=== PATIENT | female | born 2000 | race Caucasian/White ===

== ENCOUNTER → 2020-02-09 | Outpatient (CLI) | payer SELFPAY ==
--- NOTE | 2020-02-09 14:02 | RADIOLOGY REPORT (SQ) ---
EXAM DESCRIPTION: U/S [id number] TRNABD 1GES W/ODOP IMAGES COMPLETED DATE/TIME: 02/09/2020 1:04 pm REASON FOR STUDY: Z34.81 ENCOUNTER FOR SUPRVSN OF NORMAL , FIRST TRIMESTER Z34.81 ENCOUNTE R FOR SUPRVSN OF NORMAL , FIRST TRIM COMPARISON: None. TECHNIQUE: Transabdominal static and realtime grayscale images acquired of the pelvis. Additional se lected spectral and color Doppler images recorded. All images stored on PACs. [facility]: Not available. CLINICAL DATES: LMP 12/03/2019. EGA based on LMP 9 weeks 5 days. DALTON based on LMP 09/08/2020. LIMITATIONS: None. FINDINGS: FETUS: Single Living intrauterine . ULTRASOUND EGA: 10 weeks 3 days. ULTRASOUND DALTON: 09/03/2020. CRL: 3.5 cm. FHR: 175 beats per minute. SURVEY: Too early to assess. AMNIOTIC FLUID: Too early to assess. PLACENTA: Too early to assess. SUBCHORIONIC BLEED: No. UTERUS: The uterus measures 10.5 x 9.9 x 9.7 cm. There is an intrauterine gestational sac that conta ins an embryo. CERVICAL LENGTH: 3 cm. Closed. RIGHT ADNEXA: Unable to visualize the right ovary. There is no adnexal mass. LEFT ADNEXA: Unable to visualize the left ovary. There is no adnexal mass. FREE FLUID: None. OTHER: No other finding. IMPRESSION: LIVE INTRAUTERINE . EGA 9 weeks 5 days based on LMP with concordant biometric parameters. Nonvisualization of the ovaries. There is no adnexal mass. Trimester of : First trimester - 0 to 13 weeks. TECHNICAL DOCUMENTATION: JOB ID: [id number] [employer]- All Rights Reserved rev-12/17 Reading location - IP/workstation name: [email or web address]
== END ==
LOC: RAD 12:46
PROVIDERS: ATTEND Midwife
DX: Z34.81 Encounter for supervision of other normal pregnancy, first trimester (principal); Z3A.10 10 weeks gestation of pregnancy
CPT/HCPCS: 76801

== ENCOUNTER → 2020-04-23 | Outpatient (CLI) | payer SELFPAY ==
--- NOTE | 2020-04-23 15:38 | RADIOLOGY REPORT (SQ) ---
EXAM DESCRIPTION: U/S OB 14+ TRNABD 1GES W/O DOP IMAGES COMPLETED DATE/TIME: 04/23/2020 3:22 pm REASON FOR STUDY: Z34.82 ENCOUNTER FOR SUPRVSN OF NORMAL , SECOND TRIMESTER Z34.82 ENCOUNT ER FOR SUPRVSN OF NORMAL , SECOND TRI COMPARISON: 02/09/2020 TECHNIQUE: Static and Dynamic grayscale imaging performed of gravid uterus using transabdominal appr oach. Additional selected color Doppler and spectral images recorded. All stored on PACS. LIMITATIONS: None. FINDINGS: FETUSES SEEN:1 EGA: 20 weeks 3 days Calculated using BPD,FL,HC,AC documented on images. No discrepancy with clinica l dates. DALTON: 09/07/2020 EFW: 356 grams PERCENTILE: Not calculated. LVP: 4.9 x 7.9 cm PLACENTA: Anterior grade 1 PRESENTATION: Variable ANATOMY: HEART RATE: 155 beats per minute. FOUR CHAMBER HEART: Visualized. THREE VESSEL CORD: Yes. CORD INSERTION: Visualized. KIDNEYS AND BLADDER: Visualized. Appear normal. STOMACH: Visualized. Appears normal. SPINE: Normal as visualized. BRAIN AND LATERAL VENTRICLES: Visualized. Appear normal. OTHER: No other significant finding. MATERNAL ADNEXA: Maternal ovaries not visualized. CERVICAL LENGTH: 3.4 cm Closed. OTHER: No other significant finding. IMPRESSION: LIVING INTRAUTERINE . ESTIMATED GESTATIONAL AGE 20 weeks 3 days. NO VISUALIZED ANOMALIES. Trimester of : Second trimester - 13 weeks 1 day to 27 weeks 6 days. TECHNICAL DOCUMENTATION: JOB ID: [id number] [employer]- All Rights Reserved Reading location - IP/workstation name: [email or web address]
== END ==
LOC: RAD 14:53
PROVIDERS: ATTEND Midwife
DX: Z34.82 Encounter for supervision of other normal pregnancy, second trimester (principal); Z3A.20 20 weeks gestation of pregnancy
CPT/HCPCS: 76805

== ENCOUNTER 2020-07-19 01:36 | Outpatient (CLI) | payer OTHER ==
[2020-07-19 02:17] LABS: APPEARANCE,URINE SLIGHTLY-CLOUDY; BILIRUBIN,URINE NEGATIVE (NEGATIVE); CALCIUM OXALATE CRYSTALS,URINE FEW /HPF; COLOR,URINE AMBER; GLUCOSE, URINE NEGATIVE (NEGATIVE); KETONES,URINE TRACE mg/dL (NEGATIVE); LEUKOCYTE ESTERASE,URINE MODERATE (NEGATIVE); NITRITE,URINE NEGATIVE (NEGATIVE); PROTEIN,URINE 30 mg/dL (NEGATIVE); URINE SPECIFIC GRAVITY 1.025
[2020-07-19 02:40] LABS: URINE AMPHETAMINES SCREEN NEGATIVE; URINE BARBITURATES SCREEN NEGATIVE; URINE BENZODIAZEPINES SCREEN NEGATIVE; URINE COCAINE SCREEN NEGATIVE; URINE MARIJUANA (THC) SCREEN NEGATIVE; URINE METHADONE SCREEN NEGATIVE; URINE PHENCYCLIDINE SCREEN NEGATIVE
--- NOTE | 2020-07-19 04:17 | Non Stress Test Report ---
Non Stress Test Datetime Report Generated by CPN: 07/19/2020 04:16 DEMOGRAPHIC EGA NST: 32.5 INDICATION Indication for Study (NST) Other: lc for cramping URINE RESULTS Urine Glucose - NST: Positive MONITORING Monitor Explained: Monitor Explained; Test Explained; Patient Verbalized Understanding Time on Monitor: 07/19/2020 02:08 Time off Monitor: 07/19/2020 04:03 NST Duration: 115 NST INTERVENTIONS NST Interventions: PO Hydration; Reposition Patient Physician Notified NST: Dr Montiel BABY A: [id number] BABY A Contraction Frequency : irreg FHR Baseline : 125 Accelerations : 15X15 Decelerations : None Variability : Moderate 6-25bpm NST Review: Meets Criteria for Reactive NST NST Review and Verified By : Addison Hernandez RN NST Results: Reactive NST REPORT Report Trigger: Send Report
== END 2020-07-19 04:19 | disposition home or self-care (01) ==
LOC: LC 01:36
PROVIDERS: ATTEND Obstetrics & Gynecology Gynecology
DX: O47.03 False labor before 37 completed weeks of gestation, third trimester (principal); Z3A.32 32 weeks gestation of pregnancy
CPT/HCPCS: 59025; 80307; 81001

== ENCOUNTER 2020-07-26 14:30 | Outpatient (CLI) | payer OTHER ==
[2020-07-26 14:35] VITALS: BP 120/77
--- NOTE | 2020-07-26 15:12 | ER Document Report ---
ED Medical Screen (RME) - General Chief Complaint: Pain With Urination Stated Complaint: VAGINAL PAIN,PAINFUL URINATION Time Seen by Provider: 07/26/20 15:01 Mode of Arrival: Ambulatory Information source: Patient Notes: HPI; a 20-year-old female 2 para 0 33 weeks 5 days presents to the emergency room complaining of vaginal pain with burning lower abdominal cramping and yellow discharge for the past 2 days. She denies any bleeding. Call was placed to labor and delivery, patient is to go directly to labor and delivery for further evaluation and treatment. PE: Alert and oriented x3. Lungs: Clear to auscultation without rales, rhonchi, wheezes. Heart: Tachycardic without murmurs, rubs, gallops. I have greeted and performed a rapid initial assessment of this patient. A comprehensive ED assessment and evaluation of the patient, analysis of test results and completion of the medical decision making process will be conducted by additional ED providers. I have specifically instructed the patient or family members with the patient to immediately return to any nursing staff should anything change in the patient's condition or with their chief complaint. TRAVEL OUTSIDE OF THE [place] IN LAST 30 DAYS: No - Related Data Allergies/Adverse Reactions: No Known Allergies Allergy (Verified 07/13/20 05:54) Physical Exam - Vital signs Vitals: Temp Pulse Resp BP Pulse Ox 97.5 F 101 H 20 120/77 97 07/26/20 14:32 07/26/20 14:32 07/26/20 14:32 07/26/20 14:32 07/26/20 14:32 Course - Vital Signs Vital signs: Temp Pulse Resp BP Pulse Ox 97.5 F 101 H 20 120/77 97 07/26/20 14:32 07/26/20 14:32 07/26/20 14:32 07/26/20 14:32 07/26/20 14:32
--- NOTE | 2020-07-26 16:03 | PDOC PROGRESS REPORT ---
Subjective Date:: 07/26/20 Subjective:: Painful labia and swollen. she has been on Macrobid for UTI and she thought she may have a yeast infection so she has been using monistat but it is not helping. States no itch but just pain. No history of STI. Good FM. Reason For Visit: LABOR CHECK Physical Exam - Physical Exam Vital Signs: Temp Pulse Resp BP Pulse Ox 97.5 F 101 H 20 120/77 97 07/26/20 14:32 07/26/20 14:32 07/26/20 14:32 07/26/20 14:32 07/26/20 14:32 Intake & Output 07/25/20 07/26/20 07/27/20 06:59 06:59 06:59 Weight 71.9 kg General appearance: PRESENT: no acute distress, cooperative GI/Abdominal exam: PRESENT: soft Neurological exam: PRESENT: alert, awake, oriented to person, oriented to place, oriented to time, oriented to situation, CN II-XII grossly intact. ABSENT: motor sensory deficit Psychiatric exam: PRESENT: appropriate affect, normal mood. ABSENT: homicidal ideation, suicidal ideation Skin exam: PRESENT: dry, intact, warm. ABSENT: cyanosis, rash - Gynecological Exam Labia: tender - Multiple blister looking lesions in various stages of healing. Both labia swollen. Blisters on both labia minor and majora. Small amount of thin Yellow-white VD Assessment & Plan - Diagnosis (1) Labia irritation Is this a current diagnosis for this admission?: Yes - Time Time Spent with patient: 15-24 minutes Medications reviewed and adjusted accordingly: Yes Anticipated discharge: Home Anticipated DC Timeframe: within 24 hours - Plan Summary Plan Summary: 20 yo G1 at 33 wks EGA with labial pain and swelling : possible HSV vs allergic rxn to Monistat -Exam with blisters on labia as above -Exam very painfiul -HSV culture and Antibody test,wet prep and G/C -Will begin Valtrex and lidocaine jelly prn -Will notify her of results
[2020-07-26 16:10] LABS: BACTERIA (WET MOUNT) 4+ BACTERIA SEEN; EPITHELIALS (WET MOUNT) 3+ EPITHELIALS SEEN; RBCS (WET MOUNT) FEW RBCS SEEN; T.VAGINALIS (WET MOUNT) NO TRICHOMONAS SEEN; WBCS (WET MOUNT) 3+ WBCS SEEN; YEAST (WET MOUNT) NO YEAST SEEN
[2020-07-26 16:31] LABS: APPEARANCE,URINE SLIGHTLY-CLOUDY; BILIRUBIN,URINE NEGATIVE (NEGATIVE); COLOR,URINE YELLOW; GLUCOSE, URINE NEGATIVE (NEGATIVE); KETONES,URINE TRACE mg/dL (NEGATIVE); LEUKOCYTE ESTERASE,URINE LARGE (NEGATIVE); NITRITE,URINE NEGATIVE (NEGATIVE); PROTEIN,URINE NEGATIVE (NEGATIVE); URINE SPECIFIC GRAVITY 1.015; UROBILINOGEN,URINE NEGATIVE mg/dL (<2.0)
[2020-07-26 16:46] LABS: URINE AMPHETAMINES SCREEN NEGATIVE; URINE BARBITURATES SCREEN NEGATIVE; URINE BENZODIAZEPINES SCREEN NEGATIVE; URINE COCAINE SCREEN NEGATIVE; URINE MARIJUANA (THC) SCREEN NEGATIVE; URINE METHADONE SCREEN NEGATIVE; URINE PHENCYCLIDINE SCREEN NEGATIVE
[2020-07-26] MEDS ORDERED: LIDOCAINE 5% OINTMENT 35.44 GM TP ONE (17:30)
[2020-07-26] MEDS ORDERED: VALACYCLOVIR HCL 500 MG TABLET PO ONE (17:30)
[2020-07-26 17:38] LABS: CHLAM PCR NOT DETECTED (NOT DETECT)
--- NOTE | 2020-07-26 17:57 | Non Stress Test Report ---
Non Stress Test Datetime Report Generated by CPN: 07/26/2020 17:56 DEMOGRAPHIC EGA NST: 33.5 INDICATION Indication for Study (NST) Other: possible HSV outbreak VITAL SIGNS Temperature - NST: 97.9 Pulse - NST: 90 RESP - NST: 17 MONITORING Monitor Explained: Monitor Explained; Test Explained; Patient Verbalized Understanding Time on Monitor: 07/26/2020 16:30 Time off Monitor: 07/26/2020 17:00 NST Duration: 30 NST INTERVENTIONS NST Interventions: PO Hydration Physician Notified NST: Dr. Cardoza BABY A: [id number] BABY A Movement : Present Contraction Frequency : occasional FHR Baseline : 135 Accelerations : 15X15 Decelerations : None Variability : Moderate 6-25bpm NST Review: Meets Criteria for Reactive NST NST Review and Verified By : Katina Aguayo RN NST REPORT Report Trigger: Send Report
--- NOTE | 2020-07-30 15:00 | Progress Note ---
Provider Note Provider Note: pt was seen in LD for lesion on labia on 07-26, a rx was not called in. Valtrex 1000 1 po BID x 10 days and lidocaine jelly 2% sent to [facility]. tried to call pt but no answer. HSV + for HSV 2
== END 2020-07-26 17:55 | disposition home or self-care (01) ==
LOC: EDSTATUS 15:10 → LC 15:12 → LR 15:28 → LC 17:55
PROVIDERS: ATTEND Obstetrics & Gynecology
DX: O23.593 Infection of other part of genital tract in pregnancy, third trimester (principal); Z3A.33 33 weeks gestation of pregnancy
CPT/HCPCS: 36415; 59025; 80307; 81001; 86695; 86696; 87210; 87250; 87491; 87591; J3490

== ENCOUNTER 2020-08-25 20:03 | Outpatient (CLI) | payer OTHER ==
[2020-08-25 20:45] LABS: APPEARANCE,URINE SLIGHTLY-CLOUDY; BILIRUBIN,URINE NEGATIVE (NEGATIVE); GLUCOSE, URINE 50 mg/dL (NEGATIVE); KETONES,URINE NEGATIVE (NEGATIVE); LEUKOCYTE ESTERASE,URINE LARGE (NEGATIVE); NITRITE,URINE NEGATIVE (NEGATIVE); PROTEIN,URINE 100 mg/dL (NEGATIVE); URINE SPECIFIC GRAVITY 1.032
[2020-08-25 20:49] LABS: COLOR,URINE DARK YELLOW
[2020-08-25] MEDS ORDERED: CEFTRIAXONE INJ 1000 MG VIAL ONE (20:53)
[2020-08-25] MEDS ORDERED: LIDOCAINE 1% INJ-PF (10 MG/ML) 30 ML SDV ONE (20:54)
[2020-08-25 21:16] LABS: URINE AMPHETAMINES SCREEN NEGATIVE; URINE BARBITURATES SCREEN NEGATIVE; URINE BENZODIAZEPINES SCREEN NEGATIVE; URINE COCAINE SCREEN NEGATIVE; URINE MARIJUANA (THC) SCREEN NEGATIVE; URINE METHADONE SCREEN NEGATIVE; URINE PHENCYCLIDINE SCREEN NEGATIVE
--- NOTE | 2020-08-25 21:23 | Non Stress Test Report ---
Non Stress Test Datetime Report Generated by CPN: 08/25/2020 21:23 DEMOGRAPHIC EGA NST: 38.0 INDICATION Indication for Study (NST) Other: Gestational age greater than 32 weeks VITAL SIGNS Temperature - NST: 98.3 Pulse - NST: 86 RESP - NST: 17 NBPSYS NST: 120 NBPDIA NST: 70 MONITORING Monitor Explained: Monitor Explained; Test Explained; Patient Verbalized Understanding Monitor Explained: Monitor Explained; Test Explained; Patient Verbalized Understanding Time on Monitor: 08/25/2020 20:27 Time off Monitor: 08/25/2020 20:58 NST Duration: 31 NST INTERVENTIONS NST Interventions: PO Hydration; Reposition Patient NST Interventions: PO Hydration; Reposition Patient Physician Notified NST: Dr. Adair BABY A: [id number] BABY A Movement : Present Movement : Present Contraction Frequency : x 4 FHR Baseline : 125 Accelerations : 15X15 Accelerations : 15X15 Decelerations : None Decelerations : None Variability : Moderate 6-25bpm NST Review: Meets Criteria for Reactive NST NST Review: Meets Criteria for Reactive NST NST Review and Verified By : Juan Carlos varela RN NST Results: Reactive NST Results: Reactive NST REPORT Report Trigger: Send Report
[2020-08-25] MEDS ORDERED: LIDOCAINE 1% INJ-PF (10 MG/ML) 30 ML SDV INJ ONE (21:30)
[2020-08-25] MEDS ORDERED: CEFTRIAXONE INJ 1000 MG VIAL IM ONE (21:30)
--- NOTE | 2020-08-25 22:11 | PDOC PROGRESS REPORT ---
Subjective Date:: 08/25/20 Subjective:: reports having contractions since yesterday, no lof, no vb, +FM Reason For Visit: LABOR CHECK Physical Exam - Physical Exam Vital Signs: Intake & Output 08/24/20 08/25/20 08/26/20 06:59 06:59 06:59 Weight 75.8 kg General appearance: PRESENT: no acute distress, well-developed, well-nourished Head exam: PRESENT: atraumatic, normocephalic Respiratory exam: PRESENT: clear to auscultation usha, symmetrical, unlabored GI/Abdominal exam: PRESENT: normal bowel sounds, soft. ABSENT: distended, guarding, mass, organolmegaly, rebound, tenderness Rectal exam: PRESENT: deferred Extremities exam: PRESENT: full ROM. ABSENT: calf tenderness, clubbing, pedal edema Musculoskeletal exam: PRESENT: ambulatory Neurological exam: PRESENT: alert, awake, oriented to person, oriented to place, oriented to time, oriented to situation, CN II-XII grossly intact. ABSENT: motor sensory deficit Psychiatric exam: PRESENT: appropriate affect, normal mood. ABSENT: homicidal ideation, suicidal ideation Skin exam: PRESENT: dry, intact, warm. ABSENT: cyanosis, rash Result Laboratory Results: 08/25/20 20:18 Urine Color DARK YELLOW Urine Appearance SLIGHTLY-CLOUDY Urine pH 5.0 Ur Specific [place] 1.032 Urine Protein 100 H Urine Glucose (UA) 50 H Urine Ketones NEGATIVE Urine Blood NEGATIVE Urine Nitrite NEGATIVE Ur Leukocyte Esterase LARGE H Assessment & Plan - Diagnosis (1) False labor Is this a current diagnosis for this admission?: Yes Plan: very irregular contractions. cvx //hi (2) Herpes genitalia Is this a current diagnosis for this admission?: Yes Plan: outbreak, per notes appears to be first outbreak. 07/26/2020. Valtrex started at that time. no c/o at this time. (3) Urinary tract infection Qualifiers: Urinary tract infection type: acute cystitis Is this a current diagnosis for this admission?: Yes Plan: ROcephin given IM now. handwritten rx for macrobid given to patient to fill medication. F/u in office next week. - Time Time Spent with patient: Less than 15 minutes Medications reviewed and adjusted accordingly: Yes Anticipated discharge: Home - Inpatient Certification Based on my medical assessment, after consideration of the patient's comorbidities, presenting symptoms, or acuity I expect that the services needed warrant INPATIENT care.: No I certify that my determination is in accordance with my understanding of Medicare's requirements for reasonable and necessary INPATIENT services [42 CFR 412.3e].: No
== END 2020-08-25 21:21 | disposition home or self-care (01) ==
LOC: LC 20:03
PROVIDERS: ATTEND Student in an Organized Health Care Education/Training Program
DX: O47.1 False labor at or after 37 completed weeks of gestation (principal); O23.43 Unspecified infection of urinary tract in pregnancy, third trimester; Z3A.37 37 weeks gestation of pregnancy
CPT/HCPCS: 59025; 87086; 81005; 80307; J3490; J0696

== ENCOUNTER 2020-08-27 09:57 | Outpatient (CLI) | payer OTHER ==
[2020-08-27 10:50] LABS: APPEARANCE,URINE CLOUDY; BILIRUBIN,URINE NEGATIVE (NEGATIVE); COLOR,URINE YELLOW; GLUCOSE, URINE NEGATIVE (NEGATIVE); KETONES,URINE NEGATIVE (NEGATIVE); LEUKOCYTE ESTERASE,URINE LARGE (NEGATIVE); NITRITE,URINE NEGATIVE (NEGATIVE); PROTEIN,URINE NEGATIVE (NEGATIVE); URINE SPECIFIC GRAVITY 1.006; UROBILINOGEN,URINE NEGATIVE mg/dL (<2.0)
[2020-08-27 11:17] LABS: URINE AMPHETAMINES SCREEN NEGATIVE; URINE BARBITURATES SCREEN NEGATIVE; URINE BENZODIAZEPINES SCREEN NEGATIVE; URINE COCAINE SCREEN NEGATIVE; URINE MARIJUANA (THC) SCREEN NEGATIVE; URINE METHADONE SCREEN NEGATIVE; URINE PHENCYCLIDINE SCREEN NEGATIVE
--- NOTE | 2020-08-27 11:43 | Non Stress Test Report ---
Non Stress Test Datetime Report Generated by CPN: 08/27/2020 11:42 DEMOGRAPHIC EGA NST: 38.2 INDICATION Indication for Study (NST) Other: false labor VITAL SIGNS Temperature - NST: 97.6 Pulse - NST: 80 RESP - NST: 16 NBPSYS NST: 128 NBPDIA NST: 71 MONITORING Monitor Explained: Monitor Explained; Test Explained; Patient Verbalized Understanding Time on Monitor: 08/27/2020 10:09 Time off Monitor: 08/27/2020 10:58 NST Duration: 49 NST INTERVENTIONS NST Interventions: PO Hydration; Reposition Patient Physician Notified NST: A. Lugo, CNM BABY A: [id number] BABY A Movement : Present Contraction Frequency : occasional, irregular FHR Baseline : 120 Accelerations : 15X15 Decelerations : None Variability : Moderate 6-25bpm NST Review: Meets Criteria for Reactive NST NST Review and Verified By : ROSEMARY Sherwood Results: Reactive NST REPORT Report Trigger: Send Report
== END 2020-08-27 11:38 | disposition home or self-care (01) ==
LOC: LC 09:57
PROVIDERS: ATTEND Obstetrics & Gynecology Gynecology
DX: O47.1 False labor at or after 37 completed weeks of gestation (principal); Z3A.38 38 weeks gestation of pregnancy
CPT/HCPCS: 59025; 80307; 81005; 94760

== ENCOUNTER 2020-08-27 16:23 | Inpatient (IN) | payer OTHER ==
[2020-08-27] MEDS ORDERED: RINGERS SOLUTION,LACTATED 1,000 ML IV PRN ×2 (16:37→17:05)
[2020-08-27] MEDS ORDERED: OXYTOCIN 10 UNIT/ML VIAL ONE (16:39)
[2020-08-27] MEDS ORDERED: OXYTOCIN/0.9 % SODIUM CHLORIDE 30 UNIT/500 ML RTUINJ ONE (16:40)
[2020-08-27] MEDS ORDERED: LIDOCAINE 1% INJ-PF (10 MG/ML) 30 ML SDV ONE (16:40)
[2020-08-27] MEDS ORDERED: MISOPROSTOL 0.2 MG TABLET ONE (16:40)
[2020-08-27] MEDS ORDERED: ONDANSETRON HCL INJ/PF 4 MG/2 ML SDV ONE (16:59)
[2020-08-27] MEDS ORDERED: ONDANSETRON HCL INJ/PF 4 MG/2 ML SDV IV ONE (17:00)
[2020-08-27 17:07] LABS: ABSOLUTE LYMPHOCYTES (AUTO) 0.9 10^3/uL (0.5-4.7); ABSOLUTE MONOCYTES (AUTO) 0.3 10^3/uL (0.1-1.4); ABSOLUTE NEUT (AUTO) 10.4 10^3/uL (1.7-8.2); BASOPHILS % (AUTO) 0.2 % (0-2); HEMATOCRIT 27.4 % (36.0-47.0); LYMPHOCYTES % (AUTO) 7.4 % (13-45); MEAN CORPUSCULAR HEMOGLOBIN 26.1 pg (27.0-33.4); MEAN CORPUSCULAR HGB CONC 32.9 g/dL (32.0-36.0); MEAN CORPUSCULAR VOLUME 79 fl (80-97); MONOCYTES % (AUTO) 2.9 % (3-13); PLATELET COUNT 174 10^3/uL (150-450); RED BLOOD COUNT 3.45 10^6/uL (3.72-5.28); RED CELL DISTRIBUTION WIDTH 16.7 % (11.5-14.0); SEGMENTED NEUTROPHILS % (AUTO) 89.5 % (42-78); TOTAL CELLS COUNTED % (AUTO) 100 %; WHITE BLOOD COUNT 11.6 10^3/uL (4.0-10.5)
[2020-08-27] MEDS ORDERED: FENTANYL/BUPIVACAINE/NS/PF 0 MCG/0 ML RTUINJ EPI ONE (17:21)
[2020-08-27] MEDS ORDERED: ROPIVACAINE HCL 0.2% INJ/PF (2 MG/ML) 20 ML SDV ONE (17:21)
[2020-08-27] MEDS ORDERED: EPHEDRINE SULFATE INJ 50 MG/1 ML AMPULE ONE (17:21)
--- NOTE | 2020-08-27 17:54 | Admission Physical ---
Datetime Report Generated by CPN: 08/27/2020 17:54 CURRENT ADMISSION Chief Complaint: Uterine Contractions Indication for Induction: Not Applicable Admit Impression : Term, Intrauterine ; Active Labor Admit Plan: Admit to Unit; Initiate Labor Protocol ALLERGIES Medication Allergies: No Medication Allergies: No Known Allergies (08/27/2020) Latex: No Latex Allergies Food Allergies: none Environmental Allergies: none OBSTETRICAL HISTORY EDC: 09/08/2020 00:00 : 2 Para: 0 Term: 0 : 0 SAB: 1 IAB: 0 Ectopic: 0 Livin Cesareans: 0 VBACs: 0 Multiple Births: 0 Gestational Diabetes: No Rh Sensitization: No Incompetent Cervix: No AYAH: No Infertility: No ART Treatment: No Uterine Anomaly: No IUGR: No Hx Previous C/S: No Macrosomia: No Hx Loss/Stillborn: No PIH: No Hx : No Placenta Previa/Abruption: No Depression/PP Depression: No PTL/PROM: No Post Hemorrhage: No Obstetrical History Comments: G1:2015 7 weeks G2:current SEE RECORDS Alcohol: No Marijuana : No Cocaine: No Other Illicit Drugs: No Cigarettes: Former Smoker. [id number] MEDICAL HISTORY Diabetes: No Blood Transfusion: No Pulmonary Disease (Asthma, TB): No Breast Disease: No Hypertension: No Head Charrer Surgery: No Heart Disease: No Hosp/Surgery: No Autoimmune Disorder: No Anesthetic Complications: No Kidney Disease: No Abnormal Pap Smear: No Neuro/Epilepsy: No Psychiatric Disorders: No Other Medical Diseases: Yes Hepatitis/Liver Disease: No Significant Family History: No Varicosities/Phlebitis: No Trauma/Violence : No Thyroid Dysfunction: No Medical History Comments: anxiety and depression while a teenager- on meds; hasnt been on meds since 2014 INFECTIOUS HISTORY Gonorrhea: Yes Genital Herpes: No Chlamydia: Yes Tuberculosis: No Syphilis: No Hepatitis: No HIV/AIDS Exposure: No Rash or Viral Illness: No HPV: No Infectious History Comments: 3 years ago- treated negaticve in PHYSICAL EXAM General: Normal HEENT: Normal Neurologic: Normal Thyroid: Deferred Heart: Normal Lungs: Normal Breast: Deferred Back: Normal Abdomen: Normal Genitourinary Exam: Normal Extremities: Normal DTRs: Deferred Pelvic Type: Adequate Physical Exam Comments: speculum exam done for hx hsv initial outbreak was end of july. she has been on valtrex and denies prodromal sx Vital Signs: Reviewed; Within Normal Limits VAGINAL EXAM Dilatation: 7 Effacement: 90 Station: -2 Contraction Comments: q2-3 mins MEMBRANES Pooling: Positive Membranes: Ruptured Amniotic Fluid Color: Meconium, Light FETUS A EGA: 38.2 Monitoring: External US FHR- Baseline: 120 Variability: Minimal - Undetectable to <=5bpm Accelerations: 15X15 Decelerations: Early FHR Category: Category I Estimated Weight (gm): 3000 Presentation: Vertex Admit Comment: admitted in active labor. SROM with meconium stained fluid. P: routine labor care, anticipate PLANS FOR LABOR AND DELIVERY Labor and Delivery: None Pain Management: Natural Feeding Preference: Breast Benefit of Breast Feed Discussed: Yes Circumcision: N/A INFORMED CONSENT Assignment: Rinku Montiel MD Signature: with User ID: [email or web address] : with User ID: [email or web address]
[2020-08-27] MEDS ORDERED: ACETAMINOPHEN 650 MG SUPP.RECT PR PRN (20:09)
[2020-08-27] MEDS ORDERED: ACETAMINOPHEN 325 MG TABLET PO PRN (20:09)
[2020-08-27] MEDS ORDERED: MAGNESIUM HYDROXIDE SUSP 30 ML UDCUP PO PRN (20:09)
[2020-08-27] MEDS ORDERED: VARICELLA VACC/PF (1350 UNIT/0.5 ML) 0.5 ML VIAL SUBCUT PRN (20:09)
[2020-08-27] MEDS ORDERED: DIPH/PERTUSS(ACELL)/TETANUS VAC/PF 0.5 ML SYR (>=10YO) IM PRN (20:09)
[2020-08-27] MEDS ORDERED: MAG HYDROX/AL HYDROX/SIMETH SUSP 30 ML UDCUP PO PRN (20:09)
[2020-08-27] MEDS ORDERED: FAMOTIDINE 20 MG TABLET PO PRN (20:09)
[2020-08-27] MEDS ORDERED: ZOLPIDEM TARTRATE 5 MG TABLET PO PRN (20:09)
[2020-08-27] MEDS ORDERED: GLYCERIN/WITCH HAZEL LEAF 1 EACH MED..WIPE TP PRN (20:09)
[2020-08-27] MEDS ORDERED: DIBUCAINE 1% OINTMENT 28 GM TP PRN (20:09)
[2020-08-27] MEDS ORDERED: OXYTOCIN/0.9 % SODIUM CHLORIDE 30 UNIT/500 ML RTUINJ IV PRN (20:09)
[2020-08-27] MEDS ORDERED: DIPHENHYDRAMINE HCL 25 MG CAPSULE PO PRN (20:09)
[2020-08-27] MEDS ORDERED: BENZOCAINE/MENTHOL AEROSOL SPRAY 56 ML TOP PRN (20:09)
[2020-08-27] MEDS ORDERED: MEASLES,MUMPS&RUBELLA VACC/PF 0.5 ML VIAL SUBCUT PRN (20:09)
[2020-08-27] MEDS ORDERED: PSEUDOEPHEDRINE HCL 30 MG TABLET PO PRN (20:09)
[2020-08-27] MEDS ORDERED: ACETAMINOPHEN WITH CODEINE #3 TABLET PO PRN (20:09)
[2020-08-27] MEDS ORDERED: IBUPROFEN 800 MG TABLET ONE (20:17)
[2020-08-27 20:22] LABS: HEMATOCRIT 28.9 % (36.0-47.0); HEMOGLOBIN 9.4 g/dL (12.0-15.5); MEAN CORPUSCULAR HEMOGLOBIN 25.9 pg (27.0-33.4); MEAN CORPUSCULAR HGB CONC 32.4 g/dL (32.0-36.0); MEAN CORPUSCULAR VOLUME 80 fl (80-97); RED BLOOD COUNT 3.62 10^6/uL (3.72-5.28); RED CELL DISTRIBUTION WIDTH 16.3 % (11.5-14.0); WHITE BLOOD COUNT 17.2 10^3/uL (4.0-10.5)
[2020-08-27 20:44] LABS: PLATELET COUNT 167 10^3/uL (150-450)
--- NOTE | 2020-08-27 21:43 | Warning Signs in Babies ---
VOD Warning Signs Datetime Report Generated by [facility]: 08/27/2020 21:43 VOD#608 -Warning Signs in Babies: Viewed with Parent(s)/Family (07/12/2020 22:17:Willi Cardoso RN)
--- NOTE | 2020-08-27 21:48 | Delivery Summary ---
Del Sum A-C Datetime Report Generated by CPN: 08/27/2020 21:48 DELIVERY PERSONNEL DELIVERY PERSONNEL: [id number] Delivery Doctor:: Rinku Montiel MD Labor and Delivery Nurse:: Willi Cardoso RN Nursery Nurse:: Jenna Flores RN Certified Nutritionist/SUPPLY CHAIN BUYER: Rachel Ross, ST MATERNAL INFORMATION Delivery Anesthesia: Local Medications After Delivery: Pitocin 30 Units in 500ml NS/D5W; Cytotec 1000mcg Per Rectum/Vagina Estimated Blood Loss (ml): 800 Delivery QBL: 800 Maternal Complications: None LABOR SUMMARY EDC: 09/08/2020 00:00 No. Babies in Womb: 1 Attempted: No Labor Anesthesia: None LABOR INFORMATION Reason for Induction: Not Applicable Onset of Labor: 08/27/2020 16:34 Complete Dilatation: 08/27/2020 18:57 Oxytocin: N/A Group B Beta Strep: Negative Antibiotics # of Doses: 0 Name of Antibiotic Given: n/a Steroids Given: None Reason Steroids Not Administered: Not Applicable MEMBRANES Membranes Rupture Method: Spontaneous Rupture of Membranes: 08/27/2020 17:24 Length of Rupture (hr): 2.48 Amniotic Fluid Color: Light Meconium Amniotic Fluid Amount: Moderate Amniotic Fluid Odor: None STAGES OF LABOR Stage 1 hr: 2 Stage 1 min: 23 Stage 2 hr: 0 Stage 2 min: 56 Stage 3 hr: 0 Stage 3 min: 4 Total Time in Labor hr: 3 Total Time in Labor min: 23 VAGINAL DELIVERY Episiotomy: None Laceration #1: Vaginal Laceration Extension #1: N/A Laceration Repair: Yes Laceration Repair Note: 2-0 vicryl Sponge Count Correct: Yes; Vaginal Sweep Performed Sharps Count Correct: Yes CSECTION DELIVERY Primary Indication: N/A Secondary Indication: N/A CSection Incidence: N/A Labor: N/A Elective: N/A CSection Incision: N/A BABY A INFORMATION Delivery Date/Time: 08/27/2020 19:53 Method of Delivery: Vaginal Nurse Controlled Delivery: No Born in Route : No : N/A Forceps: N/A Vacuum Extraction: N/A Shoulder Dystocia : No PRESENTATION/POSITION BABY A Presentation: Cephalic Cephalic Presentation: Vertex Vertex Position: Left Occipital Anterior Breech Presentation: N/A PLACENTA INFORMATION BABY A Placenta Delivery Time : 08/27/2020 19:57 Placenta Method of Delivery: Spontaneous Placenta Status: Delivered SCORES BABY A Heart Rate 1 min: >100 bpm Resp Effort 1 min: Good Cry Reflex Irritability 1 min: Cough or Sneeze or Pulls Away Muscle Tone 1 min: Active Motion Color 1 min: Blue/Pale Resuscitation Effort 1 min: Tactile Stimulation SCORE 1 MIN: 8 Heart Rate 5 min: >100 bpm Resp Effort 5 min: Good Cry Reflex Irritability 5 min: Cough or Sneeze or Pulls Away Muscle Tone 5 min: Active Motion Color 5 min: Body Debary, Extremities Blue SCORE 5 MIN: 9 INFORMATION BABY A Gestational Age at Delivery: 38.2 Gestational Status: Early Term- 37- 38.6 Weeks Infant Outcome : Liveborn Condition : Stable Infant Sex: Female IDENTIFICATION BABY A Infant Verification Date/Time: 08/27/2020 20:13 ID Band Number: [id number] Mother's Name Verified: Yes RN Verifying : Ivan Cardoso, ROSEMARY Additional Verifying Personnel: Mj Henrandez RN WEIGHT/LENGTH BABY A Birthweight (gm): 3490 Weight (lb): 7 Infant Weight (oz): 11 Infant Length (in): 19.00 Length (cm): 48.26 CORD INFORMATION BABY A No. Cord Vessels: 3 Nuchal Cord : N/A Cord Blood Taken: Yes-For Storage (Mom's Blood type +) Suction: Mouth; Nose ASSESSMENT BABY A Infant Complications: None Physical Findings at Delivery: Within Normal Limits Skin to Skin: Yes Skin to Skin Time (min): 60 Transferred To: Remains with Mother BABY B INFORMATION : N/A SIGNATURES Signature: with User ID: [email or web address] : I was personally available for consultation and serving as supervising physician for the MLP.
--- NOTE | 2020-08-27 21:48 | Birth Certificate Data ---
Cert Data Datetime Report Generated by CPN: 08/27/2020 21:48 CERTIFICATE DATA Delivery Provider: Rinku Montiel MD (07/12/2020 22:17:Rinku Montiel MD (WEB)) 47a. Care: Yes (07/12/2020 22:17:MARCELLA Guadarrama) 47b. Date of First Visit: 01/17/2020 00:00 (07/12/2020 22:17:Ayesha Javier RN) 47c. Date of Last Visit: 08/22/2020 00:00 (07/12/2020 22:17:Ayesha Javier RN) 47d. Number of Visits: 14 (07/12/2020 22:17:Ayesha Javier RN) 48a. Number of Prev Live Births: 0 (07/12/2020 22:17:MARCELLA Guadarrama) 48b. Now Livin (07/12/2020 22:17:MARCELLA Guadarrama) 48c. Live Births Now : 0 (07/12/2020 22:17:QS system process) 48e. Losses: 0 (07/12/2020 22:17:Zeenat Camp, RNC) RISK FACTORS IN THIS 49a. Diabetes: No (07/12/2020 22:17:Tracee Linn RN) 49b. Hypertension: No (07/12/2020 22:17:Tracee Linn RN) 49c. Previous Births: 0 (07/12/2020 22:17:Zeenat [place], [facility]) 49d. Stillborns: No (07/12/2020 22:17:Tracee Linn RN) 49d. IUGR: No (07/12/2020 22:17:Tracee Linn RN) 49e. Infertility Treatment: No (07/12/2020 22:17:Tracee Linn RN) 49f. Previous Cesareans: 0 (07/12/2020 22:17:Zeenat Camp, [facility]) Mother's Height 50b. Height Inches: 65 (07/13/2020 05:54:QS system process) Mother's Weight 51b. Weight at Delivery (lbs): 167 (08/27/2020 10:08:QS system process) Infections Present/Treated 53a. Gonorrhea: Yes (07/12/2020 22:17:Tracee Linn RN) Results this Hospital Visit : Negative (07/12/2020 22:17:Estelita Zavala RN) 53b. Syphilis: No (07/12/2020 22:17:Tracee Linn RN) 53c. Chlamydia: Yes (07/12/2020 22:17:Tracee Linn RN) Results this Hospital Visit: Negative (07/12/2020 22:17:Estelita Zavala RN) 53d. Hepatitis B: No (07/12/2020 22:17:Tracee Linn RN) Results this Hospital Visit: Negative (07/12/2020 22:17:Tracee Linn RN) 53e. Hepatitis C: Negative (07/12/2020 22:17:Estelita Zavala RN) 53h. Mother Tested for HBsAG: Yes (07/12/2020 22:17:Ayesha Javier RN) 53i. Date Tested: 02/14/2020 00:00 (07/12/2020 22:17:Estelita Zavala RN) 53j. Test Result: Negative (07/12/2020 22:17:Tracee Linn RN) Obstetric Procedures 54a, b, c. Obstetric Procedures: Ultrasound; NST (07/12/2020 22:17:Ayesha Javier RN) Cigarette Smoking Cigarette Smoking: Former Smoker. [id number] (07/12/2020 22:17:Willi Cardoso RN) 55a. 3 Months Before Preg - Ci (07/12/2020 22:17:Willi Cardoso RN) 55a. Packs: 0 (07/12/2020 22:17:Willi Cardoso RN) 55b. 1st Trimester of Preg- Ci (07/12/2020 22:17:Willi Cardoso RN) 55b. Packs: 0 (07/12/2020 22:17:Willi Cardoso RN) 55c. 2nd Trimester of Preg- Ci (07/12/2020 22:17:Willi Cardoso RN) 55c. Packs: 0 (07/12/2020 22:17:Willi Cardoso RN) 55d. 3rd Trimester of Preg- Ci (07/12/2020 22:17:Willi Cardoso RN) 55d. Packs: 0 (07/12/2020 22:17:Willi Cardoso RN) Onset of Labor 56a. PROM >12 Hrs: 2.48 (07/12/2020 22:17:QS system process) 56b. Precipitous Labor <3 Hrs: 3 (07/12/2020 22:17:QS system process) 56c. Prolonged Labor > 20 Hrs: 3 (07/12/2020 22:17:QS system process) 57a. Induction of Labor: N/A (07/12/2020 22:17:Willi Cardoso RN) 57c. Non-Vertex Presentation A: Vertex (07/12/2020 22:17:Rinku Montiel MD ([facility])) 57d. Steroids - Lung Mat: None (07/12/2020 22:17:MARCELLA Pompa) 57d. Steroids - Lung Mat: Not Applicable (07/12/2020 22:17:MARCELLA [place]pa) 57f. Mat [place] or Temp >100.4: 98.3 (07/12/2020 22:17:MARCELLA Pompa) 57g. Moderate/Heavy Meconium: Light Meconium (08/27/2020 17:24:Ayesha Javier RN) 57h. Intolerance of Labor: N/A (07/12/2020 22:17:Willi Cardoso RN) : N/A (07/12/2020 22:17:Willi Cardoso RN) 57i. Epidural/Spinal Anesthesia: None (07/12/2020 22:17:Willi Cardoso RN) Method of Delivery 58a. Forceps - Unsuccessful A: N/A (07/12/2020 22:17:MARCELLA Pompa) 58b. Vacuum - Unsuccessful A: N/A (07/12/2020 22:17:MARCELLA [place]pa) 58c. Presentation at 58c. Presentation at - A : Vertex (07/12/2020 22:17:Rinku Montiel MD ([facility])) 58c. Presentation at - A : N/A (07/12/2020 22:17:MARCELLA Pompa) 58c. Presentation at - A : Cephalic (07/13/2020 00:27:Rinku Montiel MD ([facility])) Final Route and Method of Del 58d. Baby A Route/Delivery: Vaginal (08/27/2020 19:53:Willi Cardoso RN) 58e. Trial of Labor Attempted: No (07/12/2020 22:17:Willi Cardoso RN) 58e. Trial of Labor Attempted A: N/A (07/12/2020 22:17:MARCELLA [place]pa) 58e. Trial of Labor Attempted B: N/A (07/12/2020 22:17:Willi Cardoso RN) Maternal Morbidity 59b. 3rd or 4th Degree Lacs: Vaginal (07/12/2020:17:Rinku Montiel, MD ([facility])) Birthweight Baby A: 3490 (07/12/2020 22:17:Lyly Braga, RN) 60a. Pounds : 7 (07/12/2020:17:QS system process) 60b. Ounces: 11 (07/12/2020 22:17:QS system process) 61. GA at Delivery Baby A: 38.2 (07/12/2020:17:Angeles Earlene RNC) : Early Term- 37- 38.6 Weeks (07/12/2020:17:QS system process) 62a. 5 Minute Baby A: 9 (07/12/2020 22:17:QS system process)
[2020-08-27] MEDS: IBUPROFEN 800 MG TABLET PO SCH (22:05)
[2020-08-28] MEDS: IBUPROFEN 800 MG TABLET PO SCH ×3 (05:48→21:44)
[2020-08-28 08:19] LABS: HEMATOCRIT 21.3 % (36.0-47.0); MEAN CORPUSCULAR HEMOGLOBIN 25.7 pg (27.0-33.4); MEAN CORPUSCULAR HGB CONC 32.3 g/dL (32.0-36.0); MEAN CORPUSCULAR VOLUME 80 fl (80-97); PLATELET COUNT 169 10^3/uL (150-450); RED BLOOD COUNT 2.68 10^6/uL (3.72-5.28); RED CELL DISTRIBUTION WIDTH 16.8 % (11.5-14.0); WHITE BLOOD COUNT 11.4 10^3/uL (4.0-10.5)
[2020-08-28 08:56] LABS: HEMOGLOBIN 6.9 g/dL (12.0-15.5)
[2020-08-28] MEDS ORDERED: ONDANSETRON HCL INJ/PF 4 MG/2 ML SDV IV ONE (08:59)
[2020-08-28] MEDS ORDERED: ONDANSETRON 4 MG TAB.RAPDIS PO PRN (09:01)
[2020-08-28] MEDS: SENNOSIDES/DOCUSATE 8.6-50 MG 1 EACH TABLET PO SCH (09:42)
[2020-08-28] MEDS: FERROUS SULFATE 325 MG TABLET PO SCH ×2 (09:42→17:41)
[2020-08-28] MEDS: DOCUSATE SODIUM 100 MG CAPSULE PO SCH ×2 (09:45→17:41)
[2020-08-28] MEDS: PRENATAL VITAMIN W DHA CAPSULE PO SCH (09:45)
[2020-08-28] MEDS ORDERED: DIPHENHYDRAMINE HCL 25 MG CAPSULE PO PRN (11:37)
[2020-08-28] MEDS ORDERED: NORMAL SALINE 250 ML IV PRN ×2 (11:37)
--- NOTE | 2020-08-28 13:10 | PDOC PROGRESS REPORT ---
Subjective-OB Progress Note for:: 08/28/20 Subjective: 20yo s/p ppd1. Voiding and ambulating without difficulty, reports pain well controlled with medication. Denies any concerns but feeling very nauseous this am. Denies SOB/lightheadedness but agreeable to blood transfusion at this time Physical Exam (OB) Vital Signs: Temp Pulse Resp BP Pulse Ox 99.3 F 92 18 114/69 100 08/28/20 10:00 08/28/20 07:15 08/28/20 07:15 08/28/20 07:15 08/28/20 07:15 Intake & Output 08/27/20 08/28/20 08/29/20 06:59 06:59 06:59 Intake Total 140 Balance 140 Weight 76 kg - General General Appearance: Appears well - PIH/Pre-Eclampsia Clonus: Negative Headache: Absent Epigastric Pain: No Visual Changes: No - Maternal Morbidity 59. Maternal Morbidity (serious complications experinced by the mother associated with labor and delivery: Maternal transfusion - Episiotomy/Laceration Site Condition: Well Approximated - Lochia Lochia Amount: Scant < 10 ml Lochia Color: Rubra/Red - Abdomen Description: Soft Hernia Present: No Fundal Description: Firm, Midline Fundal Height: u/u - u/2 - Respiratory Respiratory Status: No respiratory distress - Extremities Upper extremity: Normal inspection Lower extremities: Normal inspection - Neurological Cognition: Normal Orientation: AAOx4 - Psychological Associated symptoms: Normal affect, Normal mood Objective-Diagnostic Laboratory: 08/28/20 07:57 08/27/20 08/27/20 08/27/20 16:58 16:58 20:13 WBC 11.6 H 17.2 H RBC 3.45 L 3.62 L Hgb 9.0 L 9.4 L Hct 27.4 L 28.9 L MCV 79 L 80 MCH 26.1 L 25.9 L MCHC 32.9 32.4 RDW 16.7 H 16.3 H Plt Count 174 167 Seg Neutrophils % 89.5 H Blood Type B POSITIVE Antibody Screen NEGATIVE 08/28/20 07:57 WBC 11.4 H RBC 2.68 L Hgb 6.9 L D Hct 21.3 L MCV 80 MCH 25.7 L MCHC 32.3 RDW 16.8 H Plt Count 169 Seg Neutrophils % Blood Type Antibody Screen Assessment and Plan(PN) - Assessment and Plan (1) Vaginal delivery Is this a current diagnosis for this admission?: Yes Plan: routine pp care (2) Obstetric vaginal laceration, delivered, current hospitalization Is this a current diagnosis for this admission?: Yes Plan: continue to monitor for s/s of infection (3) Acute blood loss anemia Is this a current diagnosis for this admission?: Yes Plan: agreeable to blood transfusion, two units ordered at this time (4) Blood transfusion during current hospitalization Is this a current diagnosis for this admission?: Yes Plan: awaiting for blood products at this time (5) Meconium in amniotic fluid Is this a current diagnosis for this admission?: Yes Plan: delivered - Time Spent with Patient Time with patient: 15-25 minutes Medications reviewed and adjusted accordingly: Yes - Disposition Anticipated Discharge Disposition: Home, Self Care Anticipated Discharge Timeframe: within 24 hours
[2020-08-28 21:55] LABS: ABSOLUTE EOSINOPHILS # (AUTO) 0.1 10^3/uL (0.0-0.6); ABSOLUTE LYMPHOCYTES (AUTO) 1.4 10^3/uL (0.5-4.7); ABSOLUTE MONOCYTES (AUTO) 0.7 10^3/uL (0.1-1.4); ABSOLUTE NEUT (AUTO) 8.6 10^3/uL (1.7-8.2); BASOPHILS % (AUTO) 0.2 % (0-2); EOSINOPHILS % (AUTO) 0.6 % (0-6); HEMATOCRIT 28.8 % (36.0-47.0); LYMPHOCYTES % (AUTO) 13.1 % (13-45); MEAN CORPUSCULAR HEMOGLOBIN 27.4 pg (27.0-33.4); MEAN CORPUSCULAR VOLUME 81 fl (80-97); MONOCYTES % (AUTO) 6.3 % (3-13); PLATELET COUNT 164 10^3/uL (150-450); RED BLOOD COUNT 3.57 10^6/uL (3.72-5.28); RED CELL DISTRIBUTION WIDTH 16.1 % (11.5-14.0); SEGMENTED NEUTROPHILS % (AUTO) 79.8 % (42-78); TOTAL CELLS COUNTED % (AUTO) 100 %; WHITE BLOOD COUNT 10.8 10^3/uL (4.0-10.5)
[2020-08-28 21:57] LABS: HEMOGLOBIN 9.8 g/dL (12.0-15.5)
[2020-08-29] MEDS: IBUPROFEN 800 MG TABLET PO SCH ×2 (05:06→16:41)
[2020-08-29 07:50] VITALS: BP 123/74
[2020-08-29] MEDS: PRENATAL VITAMIN W DHA CAPSULE PO SCH (09:20)
[2020-08-29] MEDS: FERROUS SULFATE 325 MG TABLET PO SCH (09:20)
[2020-08-29] MEDS: SENNOSIDES/DOCUSATE 8.6-50 MG 1 EACH TABLET PO SCH (09:20)
[2020-08-29] MEDS: DOCUSATE SODIUM 100 MG CAPSULE PO SCH (09:20)
--- NOTE | 2020-08-29 10:34 | PDOC PROGRESS REPORT ---
Subjective-OB Progress Note for:: 08/29/20 Subjective: OOB in room, voiding, brushing teeth, feeling better after blood transfusion, hsb in room Physical Exam (OB) Vital Signs: Temp Pulse Resp BP Pulse Ox 97.5 F 65 16 123/74 98 08/29/20 07:49 08/29/20 07:49 08/29/20 07:49 08/29/20 07:49 08/29/20 07:49 Intake & Output 08/28/20 08/29/20 08/30/20 06:59 06:59 06:59 Intake Total 1140 140 Balance 1140 140 Weight 76 kg - PIH/Pre-Eclampsia Clonus: Negative Headache: Absent Epigastric Pain: No Visual Changes: No - Maternal Morbidity 59. Maternal Morbidity (serious complications experinced by the mother associated with labor and delivery: Maternal transfusion - Lochia Lochia Amount: Scant < 10 ml Lochia Color: Rubra/Red - Abdomen Description: Soft, Round Hernia Present: No Fundal Description: Firm, Midline Fundal Height: u/u - u/2 Objective-Diagnostic Laboratory: 08/28/20 21:24 08/27/20 08/28/20 16:58 21:24 WBC 10.8 H RBC 3.57 L Hgb 9.8 L D Hct 28.8 L MCV 81 MCH 27.4 MCHC 34.0 RDW 16.1 H Plt Count 164 Seg Neutrophils % 79.8 H Blood Type B POSITIVE Antibody Screen NEGATIVE Assessment and Plan(PN) - Assessment and Plan (1) Vaginal delivery Is this a current diagnosis for this admission?: Yes (2) Obstetric vaginal laceration, delivered, current hospitalization Is this a current diagnosis for this admission?: Yes (3) Acute blood loss anemia Is this a current diagnosis for this admission?: Yes (4) Blood transfusion during current hospitalization Is this a current diagnosis for this admission?: Yes - Time Spent with Patient Time with patient: Less than 15 minutes Medications reviewed and adjusted accordingly: Yes - Disposition Anticipated Discharge Disposition: Home, Self Care Anticipated Discharge Timeframe: within 24 hours
--- NOTE | 2020-08-29 16:38 | PDOC PROGRESS REPORT ---
Subjective-OB Progress Note for:: 08/29/20 Subjective: feeling good, wants to go home Physical Exam (OB) Vital Signs: Temp Pulse Resp BP Pulse Ox 97.5 F 65 16 123/74 98 08/29/20 10:00 08/29/20 07:49 08/29/20 07:49 08/29/20 07:49 08/29/20 07:49 Intake & Output 08/28/20 08/29/20 08/30/20 06:59 06:59 06:59 Intake Total 1140 140 Balance 1140 140 Weight 76 kg - PIH/Pre-Eclampsia DTR's: 2 + Clonus: Negative Headache: Absent Epigastric Pain: No Visual Changes: No - Maternal Morbidity 59. Maternal Morbidity (serious complications experinced by the mother associated with labor and delivery: Maternal transfusion - Lochia Lochia Amount: Scant < 10 ml Lochia Color: Rubra/Red - Abdomen Description: Soft, Round Hernia Present: No Fundal Description: Firm, Midline Fundal Height: u/u - u/2 Objective-Diagnostic Laboratory: 08/28/20 21:24 08/27/20 08/28/20 16:58 21:24 WBC 10.8 H RBC 3.57 L Hgb 9.8 L D Hct 28.8 L MCV 81 MCH 27.4 MCHC 34.0 RDW 16.1 H Plt Count 164 Seg Neutrophils % 79.8 H Blood Type B POSITIVE Antibody Screen NEGATIVE Assessment and Plan(PN) - Assessment and Plan (1) Vaginal delivery Is this a current diagnosis for this admission?: Yes (2) Obstetric vaginal laceration, delivered, current hospitalization Is this a current diagnosis for this admission?: Yes (3) Acute blood loss anemia Is this a current diagnosis for this admission?: Yes (4) Blood transfusion during current hospitalization Is this a current diagnosis for this admission?: Yes - Time Spent with Patient Time with patient: Less than 15 minutes Medications reviewed and adjusted accordingly: Yes - Disposition Anticipated Discharge Disposition: Home, Self Care Anticipated Discharge Timeframe: within 24 hours
--- NOTE | 2020-08-29 16:48 | PDOC DISCHARGE SUMMARY ---
Impression - Admit/DC Date/PCP Admission Date/Primary Care Provider: 08/27/20 16:40 EDWARD CAMILO MD Discharge Date: 08/29/20 - Discharge Diagnosis (1) Vaginal delivery Is this a current diagnosis for this admission?: Yes (2) Obstetric vaginal laceration, delivered, current hospitalization Is this a current diagnosis for this admission?: Yes (3) Acute blood loss anemia Is this a current diagnosis for this admission?: Yes (4) Blood transfusion during current hospitalization Is this a current diagnosis for this admission?: Yes - Additional Information Discharge Diet: As Tolerated Discharge Activity: Activity As Tolerated Referrals: EDWARD CAMILO MD [Primary Care Provider] - Home Medications: Levothyroxine Sodium [Levothyroxine] 50 mcg PO Q6AM 08/25/20 Nitrofurantoin Monohyd/M-Cryst [Macrobid 100 mg Capsule] 100 mg PO BID 08/27/20 Valacyclovir HCl [Valtrex 500 mg Tablet] 1,000 mg PO DAILY 08/28/20 Vit/Dha [ Multi + Dha Capsule] 1 cap PO DAILY capsule 08/29/20 HPI Gestational Age: 38.2 Reason(s) for Admission: Onset of Labor Procedures: Cerciage, NST, Ultrasound Intrapartum Procedure(s): Spontaneous Vaginal Delivery Complication(s): Laceration-Vaginal Laceration-Degree: 1st Hospital Course Hospital Course: PPH, blood transfusion 59. Maternal Morbidity (serious complications experinced by the mother associated with labor and delivery: Maternal transfusion Results Laboratory Results: WBC 10.8 10^3/uL (4.0-10.5) H 08/28/20 21:24 RBC 3.57 10^6/uL (3.72-5.28) L 08/28/20 21:24 Hgb 9.8 g/dL (12.0-15.5) L D 08/28/20 21:24 Hct 28.8 % (36.0-47.0) L 08/28/20 21:24 MCV 81 fl (80-97) 08/28/20 21:24 MCH 27.4 pg (27.0-33.4) 08/28/20 21:24 MCHC 34.0 g/dL (32.0-36.0) 08/28/20 21:24 RDW 16.1 % (11.5-14.0) H 08/28/20 21:24 Plt Count 164 10^3/uL (150-450) 08/28/20 21:24 Lymph % (Auto) 13.1 % (13-45) 08/28/20 21:24 [place] % (Auto) 6.3 % (3-13) 08/28/20 21:24 Eos % (Auto) 0.6 % (0-6) 08/28/20 21:24 Baso % (Auto) 0.2 % (0-2) 08/28/20 21:24 Absolute Neuts (auto) 8.6 10^3/uL (1.7-8.2) H 08/28/20 21:24 Absolute Lymphs (auto) 1.4 10^3/uL (0.5-4.7) 08/28/20 21:24 Absolute Monos (auto) 0.7 10^3/uL (0.1-1.4) 08/28/20 21:24 Absolute Eos (auto) 0.1 10^3/uL (0.0-0.6) 08/28/20 21:24 Absolute Basos (auto) 0.0 10^3/uL (0.0-0.2) 08/28/20 21:24 Seg Neutrophils % 79.8 % (42-78) H 08/28/20 21:24 RPR NONREACTIVE (NONREACTIVE) 08/27/20 16:58 Blood Type B POSITIVE 08/27/20 16:58 Blood Type Confirm B POSITIVE 08/28/20 12:17 Antibody Screen NEGATIVE 08/27/20 16:58 Crossmatch See Detail 08/27/20 16:58 Plan Health Concerns: anemia Plan of Treatment: dc home, iron, rev S&S to report Goals: no complications Time Spent: Less than 30 Minutes
== END 2020-08-29 18:00 | disposition home or self-care (01) | DRG 806 ==
LOC: LC 16:23 → LR 16:40 → 2S 21:53
PROVIDERS: ADMIT Obstetrics & Gynecology Gynecology; ATTEND Obstetrics & Gynecology Gynecology
PROC: 10E0XZZ Delivery of Products of Conception, External Approach (ICD-10-PCS; principal; 2020-08-27)
PROC: 0HQ9XZZ Repair Perineum Skin, External Approach (ICD-10-PCS; 2020-08-27)
PROC: 30233N1 Transfusion of Nonautologous Red Blood Cells into Peripheral Vein, Percutaneous Approach (ICD-10-PCS; 2020-08-28)
DX: O99.284 Endocrine, nutritional and metabolic diseases complicating childbirth (principal); D62 Acute posthemorrhagic anemia; Z37.0 Single live birth; E07.9 Disorder of thyroid, unspecified; O90.81 Anemia of the puerperium; O70.0 First degree perineal laceration during delivery; O77.0 Labor and delivery complicated by meconium in amniotic fluid; Z20.822 Contact with and (suspected) exposure to COVID-19; Z3A.38 38 weeks gestation of pregnancy; Z87.891 Personal history of nicotine dependence
CPT/HCPCS: 36415; 36430; 85025; 85027; 86592; 86850; 86900; 86901; 86920; J2405; J2590; J2795; J3010; J3490; P9016; S0119